=== PATIENT | male | born 1955 | race African-American/Black ===

== ENCOUNTER 2019-01-18 21:43 | Emergency (ER) | payer OTHER ==
[~2019-01-18] VITALS: Ht 188 cm; Wt 103.4 kg
[2019-01-18] MEDS ORDERED: LISINOPRIL10 MG PO (21:48)
[2019-01-18] MEDS ORDERED: NORCO 5-325 TA1 EAC1 PO (21:49)
[2019-01-18] MEDS ORDERED: NORVASC10 MG PO (21:49)
[2019-01-18 22:12] LABS: ABSOLUTE NEUTROPHILS 2.7 thou/uL (1.4-8.2); BASOPHILS 0.9 % (0.0-2.0); EOSINOPHILS 2.6 % (0.0-3.0); HEMATOCRIT 41.9 % (42.0-52.0); HEMOGLOBIN 14.3 gm/dL (14.0-18.0); LYMPHOCYTES 44.4 % (24.0-44.0); MCH 32.4 pg (26.0-34.0); MCHC 34.1 g/dL (28.0-37.0); PLATELET COUNT 171 thou/uL (150-400); POLYS 41.1 % (36.0-66.0); RBC 4.42 mil/uL (4.50-6.00); RDW 14.3 % (10.5-14.5); WBC 6.6 thou/uL (4.0-11.0)
[2019-01-18 22:20] LABS: ANION GAP 13 mmol/L (7-16); BUN 15 mg/dL (7-18); CALCIUM 9.1 mg/dL (8.5-10.1); CHLORIDE 105 mmol/L (98-107); CO2 22 mmol/L (21-32); CREATININE 1.5 mg/dL (0.7-1.3); GLUCOSE 116 mg/dL (74-106); POTASSIUM 3.9 mmol/L (3.5-5.1); SODIUM 140 mmol/L (136-145)
[2019-01-18 22:29] LABS: ALBUMIN 3.3 g/dL (3.4-5.0); SGOT 50 U/L (15-37); SGPT 52 U/L (30-65); TOTAL BILIRUBIN 0.6 mg/dL (<0.1-1.0); TOTAL PROTEIN 8.1 g/dL (6.4-8.2); TROPONIN-I <0.06 ng/mL (<0.06)
[2019-01-18] MEDS ORDERED: QUETIAPINE FUM100 MG PO (23:47)
[2019-01-18] MEDS ORDERED: TRAZODONE HCL100 MG PO (23:48)
[2019-01-18] MEDS ORDERED: ZOLOFT50 MG PO (23:49)
[2019-01-19 03:18] LABS: AMP/METHAMP Negative (Negative); BARBITURATES Negative (Negative); BENZODIAZEPINES Negative (Negative); COCAINE POSITIVE (Negative); METHADONE Negative (Negative); OPIATES Negative (Negative); PCP Negative (Negative)
[2019-01-19 14:30] VITALS: BP 00/00
--- NOTE | 2019-01-20 07:42 | EKG ---
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 : 1955 Requested By: Lore Velasquez Order Number: [id number] MD: Jd Lemus Measurements Intervals [place] Rate: 101 P: 61 CO: 186 QRS: 72 QRSD: 93 T: 64 QT: 335 QTc: 435 Interpretive Statements Sinus tachycardia No previous ECG available for comparison Electronically Signed On 01-20-2019 7:42:09 CDT by Jd Lemus [email or web address] ��������������������������������������������� <ELECTRONICALLY SIGNED> ���������������������������������������� By: Jd Lemus MD, [facility] ��������������������������������������������� 01/20/19 0742 2153 2153 Jd Lemus MD, FACC /EPI
--- NOTE | 2019-01-20 07:42 | EKG ---
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 : 1955 Requested By: Bart Reeves Order Number: [id number] MD: Jd Lemus Measurements Intervals [place] Rate: 100 P: 63 [place]: 181 QRS: 73 QRSD: 109 T: 65 QT: 344 QTc: 444 Interpretive Statements Sinus tachycardia No previous ECG available for comparison Electronically Signed On 01-20-2019 7:41:50 CDT by Jd Lemus [email or web address] ��������������������������������������������� <ELECTRONICALLY SIGNED> ���������������������������������������� By: Jd Lemus MD, [facility] ��������������������������������������������� 01/20/19 0741 2151 2151 Jd Lemus MD, FACC /EPI
== END 2019-01-19 14:33 ==
LOC: ER 21:43
PROVIDERS: Emergency Medicine; Physician Assistant
DX: R45.851 Suicidal ideations (principal); R00.0 Tachycardia, unspecified; R42 Dizziness and giddiness; F17.210 Nicotine dependence, cigarettes, uncomplicated; Z88.0 Allergy status to penicillin; Z88.6 Allergy status to analgesic agent; Z79.899 Other long term (current) drug therapy